=== PATIENT | female | born 1985 | race Caucasian/White ===

== ENCOUNTER 2019-06-14 04:42 | Emergency (ER) | payer MEDICAID ==
[~2019-06-14] VITALS: Ht 172.7 cm; Wt 66.0 kg
[2019-06-14] MEDS ORDERED: IBUPROFEN 600MG TABLET PO STA (06:53)
[2019-06-14] MEDS ORDERED: ONDANSETRON HCL 4MG/2ML INJ IV STA (06:53)
[2019-06-14] MEDS ORDERED: SODIUM CHLORIDE 0.9% 1,000 ML IV ONE (06:53)
[2019-06-14 08:11] LABS: BASOPHILS % 0.4 % (0.0-2.0); EOSINOPHILS % 0.3 % (0.0-5.0); HEMATOCRIT. 32.4 % (36.0-48.0); HEMOGLOBIN. 10.4 g/dL (12.0-16.0); MEAN CORPUSCULAR HEMOGLOBIN 20.9 pg (28.0-32.0); MEAN CORPUSCULAR VOLUME 65.1 fL (81.0-99.0); MEAN PLATELET VOLUME 9.5 fl (7.4-10.4); MONOCYTES % 3.1 % (2.0-8.0); NEUTROPHILS % 76.2 % (40.0-76.0); PLATELET 225 x1000/uL (130-400); RED BLOOD CELL COUNT 4.98 mill/uL (4.2-5.4); RED CELL DISTRIBUTION WIDTH 15.9 % (11.6-14.6)
[2019-06-14 08:18] LABS: CHLORIDE 110 mEq/L (98-107)
[2019-06-14 08:22] LABS: ETHANOL BLOOD 67 mg/dL
[2019-06-14 08:30] LABS: HCG SCREEN NEGATIVE
[2019-06-14 08:40] LABS: PLATELET ESTIMATE NORMAL
[2019-06-14 09:20] VITALS: BP 96/55
== END 2019-06-14 09:22 | disposition home or self-care (01) ==
LOC: ER 04:42
DX: F10.129 Alcohol abuse with intoxication, unspecified (principal); D50.9 Iron deficiency anemia, unspecified; R53.1 Weakness; R00.0 Tachycardia, unspecified; Y90.3 Blood alcohol level of 60-79 mg/100 ml
CPT/HCPCS: 36415; 80053; 80320; 83690; 84703; 85025; 96361; 96374; 99283; J2405; J7030; Z7610; G0480